=== PATIENT | female | born 1975 | race Caucasian/White ===

== ENCOUNTER 2019-05-11 13:22 | Inpatient (IN) | payer SELFPAY ==
[2019-05-11] VITALS (18 sets, daily range): BP systolic 99–118; BP diastolic 55–74; PULSE 59–93; RESP 14–18; TEMP 36.1–36.9; O2SAT 96–100; BMI 35.2
[2019-05-11] MEDS: Terbutaline 1 MG/ML Vial 0.25 MG SC (13:04)
[2019-05-11 13:37] LABS: Absolute Lymphocyte Count 1.81 X10^3/uL (0.83-4.51); Absolute Neutrophil Count 6.5 X10^3/uL (2.0-7.7); Basophil# 0.07 X10^3/uL; Basophil% 0.7 % (0-1); Eosinophil# 0.06 X10^3/uL; Eosinophils% 0.6 % (0-5); Hemoglobin 11.5 g/dL (12.0-15.0); Lymphocyte # 1.81 X10^3/ul (4.0); Lymphocyte % 19.2 % (19-41); Mean Corp Hgb Conc 32.9 g/dL (32-36); Mean Corpuscular Hgb 29.6 pg (27.0-32.0); Mean Corpuscular Volume 90.2 fL (81-99); Monocyte# 0.65 X10^3/uL; Monocyte% 6.9 % (0-10); NRBC Flagged by Analyzer 0 % (0-5); Neutrophil # 6.48 X10^3/uL (2.7-7.7); Neutrophil % 68.6 % (47-70); Platelet Count 153 K/mm3 (150-450); RBC Distribution Width CV 13.2 % (11.6-14.6); RBC Distribution Width SD 43.5 fl (35.1-43.9); Red Blood Count 3.88 M/mm3 (4.2-5.4); White Blood Count 9.5 K/mm3 (4.4-11.0)
[2019-05-11] MEDS: Methylergonovine 0.2 MG/ML Ampul IM (13:48)
[2019-05-11] MEDS: Oxytocin 30 units/NS 500 ml 30 UNITS/500 ML IV.SOLN 167 UNITS IV (13:48)
[2019-05-11] MEDS: Cefazolin 2 GM in 0.9% Normal Saline 100 ML IV (14:00)
[2019-05-11] MEDS: Ondansetron 4 MG/2 ML Vial IV ×2 (14:10→18:15)
--- NOTE | 2019-05-11 14:45 | NURSING ---
Balloon tamponade filled with 300 cc normal saline in OR
[2019-05-11 14:54] LABS: Absolute Lymphocyte Count 2.01 X10^3/uL (0.83-4.51); Absolute Neutrophil Count 6.4 X10^3/uL (2.0-7.7); Basophil# 0.06 X10^3/uL; Basophil% 0.6 % (0-1); Eosinophil# 0.05 X10^3/uL; Eosinophils% 0.5 % (0-5); Hematocrit 28.4 % (37-47); Hemoglobin 9.3 g/dL (12.0-15.0); Lymphocyte # 2.01 X10^3/ul (4.0); Lymphocyte % 21.3 % (19-41); Mean Corp Hgb Conc 32.7 g/dL (32-36); Mean Corpuscular Hgb 29.9 pg (27.0-32.0); Mean Corpuscular Volume 91.3 fL (81-99); Mean Platelet Vol. 11.3 fl (6.2-12.0); Monocyte# 0.54 X10^3/uL; Monocyte% 5.7 % (0-10); NRBC Flagged by Analyzer 0 % (0-5); Neutrophil # 6.42 X10^3/uL (2.7-7.7); Neutrophil % 68.2 % (47-70); Platelet Count 132 K/mm3 (150-450); RBC Distribution Width CV 13.3 % (11.6-14.6); RBC Distribution Width SD 44.4 fl (35.1-43.9); Red Blood Count 3.11 M/mm3 (4.2-5.4); White Blood Count 9.4 K/mm3 (4.4-11.0)
--- NOTE | 2019-05-11 14:54 | CASEMGMT ---
Social Work Labor and Delivery Unit Responded to OB-ERT this date. This advertising copywriter informed by nursing of placenta previa present and taken to the room. Sat with patient's Arian (age 39) while medical team prepared patient for surgery. Arian reports there are 10 living children at home ranging in age from 19 to 3 year old. 7 girls and 3 boys. Arian works as a counter tender. Patient has worked with several midwives in past pregnancies and did deliver at least one child at [facility]. talkative during time with social director and did express concern for patient and baby, that wants both to be safe and healthy. Supportive listening provided. Remained with Arian until Arian able to be in surgical area for delivery. No other needs requested or identified at this time. -KOBI Rene, SOCIAL WORK THERAPIST
[2019-05-11 15:00] LABS: Partial Thromboplast Time 26.8 Seconds (24.1-36.2)
[2019-05-11] MEDS: Lactated Ringers 1,000 ML 150 ML IV ×2 (15:00→22:25)
[2019-05-11] MEDS: Lactated Ringers 1,000 ML 100 ML IV (15:00)
[2019-05-11 15:22] LABS: Fibrinogen 322 mg/dl (203-444)
--- NOTE | 2019-05-11 17:40 | HP.PCM_ITS ---
- Problem List (1) Complete placenta previa with hemorrhage, third trimester Status: Acute (2) Grand multipara Status: Acute (3) hemorrhage due to total placenta previa Status: Acute (4) Delivery by section Status: Acute History Date of Admission: 05/11/19 Final RUFUS: 05/10/19 Gestational age: 40 Weeks and 1 Days History of this : This is a 43 year-old, at 40 weeks gestational age presents initially to be evaluted for breech presentation, upon ultrasound she was found to have oligohydramnios at 1 cm and she was examined and found to be 4-5 cm dilated with a complete previa and she began acutely bleeding. she had received care by a display coordinator in the community and hadn't had any formal ultrasounds in the . Allergies No Known Allergies Allergy (Verified 05/11/19 13:03) Smoking Status: Never smoker Alcohol: None Number of Fetus(es): 1 Heart Tracin moderate variability reactive no decelerations category I tracing Sophia: regular History Past Pregnancies: Past Pregnancies 10 previous term vaginal deliveries Labs: Mom's Problem List Problem Status Onset Code Complete placenta previa with hemorrhage, third trimester Acute O44.13 Grand multipara Acute Z64.1 hemorrhage due to total placenta previa Acute O72.1 Delivery by section Acute Mom's Labs & Results 05/11/19 05/11/19 05/11/19 13:15 13:15 13:15 WBC 9.5 RBC 3.88 L Hgb 11.5 L Hct 35.0 L MCV 90.2 MCH 29.6 MCHC 32.9 RDW Std Deviation 43.5 RDW Coeff of Viv 13.2 Plt Count 153 MPV 12.0 Immature Gran % (Auto) 4.000 H Neut % (Auto) 68.6 Lymph % (Auto) 19.2 [place] % (Auto) 6.9 Eos % (Auto) 0.6 Baso % (Auto) 0.7 Absolute Neuts (auto) 6.5 Absolute Lymphs (auto) 1.81 Nucleated RBC % 0 PT INR APTT Fibrinogen Blood Type A POSITIVE Antibody Screen NEGATIVE Crossmatch See Detail 05/11/19 05/11/19 05/11/19 14:25 14:25 14:25 WBC 9.4 RBC 3.11 L Hgb 9.3 L Hct 28.4 L MCV 91.3 MCH 29.9 MCHC 32.7 RDW Std Deviation 44.4 H RDW Coeff of Viv 13.3 Plt Count 132 L MPV 11.3 Immature Gran % (Auto) 3.700 H Neut % (Auto) 68.2 Lymph % (Auto) 21.3 [place] % (Auto) 5.7 Eos % (Auto) 0.5 Baso % (Auto) 0.6 Absolute Neuts (auto) 6.4 Absolute Lymphs (auto) 2.01 Nucleated RBC % 0 PT 13.0 INR 1.0 APTT 26.8 Fibrinogen 322 Blood Type Antibody Screen Crossmatch Course Did the patient receive No care? Labs Blood Type: A RH: POSITIVE HbSAg Not Done Chlamydia Not Done Gonorrhea Not Done HIV/AIDS Not done Group B Strep: Not Done Current Obstetrical History Gestational Diabetes No Incompetent Cervix No Infertility No IUGR No Macrosomia No Hypertension/Pre-eclampsia No Placenta Previa/Abruption Yes PTL/PROM No Uterine anomaly No Oligohydramnios No Polyhydramnios No Multiple gestation No Past Medical History Asthma No Diabetes No Hypertension No Heart disease No Mitral valve prolapse No Neurologic/Seizure disorder/ No Migraines Kidney disease No Liver disease No Varicosities No Clotting disorders/Hx of DVT No Thyroid Dysfunction No Other medical diseases No Psychiatric disorders No Major trauma No Abnormal PAP smear No Sleep apnea No Mammogram in the last 2 years No Social History Marital Status: Alleged father Arian Hx Smoking No Smoking Status Never smoker Expected Delivery Method: Primary Section Review of Systems Constitutional: Denies: Fever, Malaise Eyes: Denies: Blurred vision, Vision Change HEENT: Denies: Head Aches, Visual Changes Cardiovascular: Denies: Chest Pain, Palpitations Respiratory: Denies: Cough, Shortness of Breath, Wheezing Gastrointestinal: Denies: Abdominal Pain, Diarrhea, Nausea, Vomiting Genitourinary: Denies: Dysuria, Hematuria Gynecological: Reports: Vaginal bleeding Musculoskeletal: Denies: Joint Pain, Muscle pain Skin: Denies: Lesions, Rash Neurological: Denies: Blurred vision, Focal weakness, Headaches Psychiatric: Denies: Anxiety, Depression Endocrine: Denies: Heat/ Cold Intolerance Hematologic/ Lymphatic: Denies: Easy Bruising, Easy Bleeding Physical Exam Vitals: Vital Signs Temp Pulse Resp BP Pulse Ox 97.3 F L 63 16 118/64 100 07/31/19 17:15 05/11/19 17:15 05/11/19 17:15 05/11/19 17:15 05/11/19 17:15 General: Alert, Cooperative, No apparent distress HEENT: Atraumatic, Normocephalic. Negative for: Thyromegaly, Lymphadenopathy Cardiovascular: Regular rate Lungs: Normal air movement Abdomen: Soft, Non Tender, Gravid Neurological: Deep Tendon Reflexes 2+/4 and Symmetrical, Neuro grossly intact. Negative for: Clonus NETWORK SECURITY OFFICER: Normal external genitalia. Negative for: Vulvar lesions Estimated gestational size: Appropriate for gestational size Presentation: Cephalic Cervix Dilation (cm): 4.5 - bleeding 400 cc Assessment/Plan All Active Problems Complete placenta previa with hemorrhage, third trimester (Acute) Grand multipara (Acute) hemorrhage due to total placenta previa (Acute) Delivery by section (Acute) This is a 43 year-old, , at 40 weeks gestational age presents with acute hemorrhage secondary to placenta previa. immediate delivery due to hemorrhage and previa
[2019-05-11] MEDS: Ketorolac 30 MG/ML Syringe IV (18:15)
--- NOTE | 2019-05-11 18:49 | PCM.OPRPT ---
Problem List (1) Complete placenta previa with hemorrhage, third trimester Status: Acute (2) Grand multipara Status: Acute (3) hemorrhage due to total placenta previa Status: Acute (4) Delivery by section Status: Acute Delivery Classification: RORY Final RUFUS: 05/10/19 Gestational age: 40 Weeks and 1 Days Indications for : Placenta Previa Description of Procedure: Auto Painter Helper stefanie Ackerman implantable devices- bakri balloon. meds: adriano, methergine, tranexamic acid Patient had been receiving care from a binder layer in the area and wanted to have second opinion regarding position. Patient was evaluated and found to be vertex upon initial evaluation. oligohydramnios was seen and an CELIA was only 1 cm. It was difficult to scan the patient due to the lack of amniotic fluid and the low position of the head. Patient cervix was examined for dilation to evaluate for induction of labor and upon vaginal exam she was found to be 4 to 5 cm dilated with an abnormal exam to palpation and acute bleeding suspicious of placenta previa. With additional manipulation and movement of the probe based on ultrasound appeared to be a placenta previa present and therefore the decision for immediate made. heart rate was reassuring with no decelerations in the 130s moderate variability reactive. Patient was taken back to the operating room and set up for spinal anesthesia bleeding was approximately 400 cc prior to delivery. Patient was prepped and draped in normal sterile fashion in the dorsal supine position and a Pfannenstiel skin incision was made with scalpel carried through the underlying layer fascia with scalpel fascia was nicked in midline incision and stretched laterally. Peritoneum entered digitally and incision stretched laterally and lower part of the uterus was noted to be greatly vascular and bulbous in appearance therefore a higher uterine incision was made but still low transverse which successfully avoided the placenta. Infant's head was delivered atraumatically followed by the rest the cord was clamped and cut the infant was seen after waiting nurse. Uterus was exteriorized and the placenta was spontaneously and then manually removed. Large sinuses were noted in the lower uterine segment going down into the cervix where the placenta had been attached and several stitches were oversewn to the endometrium lining of the uterus to obtain hemostasis. adriano applied and twice a balloon was attempted but they ruptured upon attempt to close the uterine incision. uterine incision was closed in a double layer and then a bakri balloon introduced intrauterine. lysteda and methergine were given as well as pitocin. bleeding was controlled and good uterine tone noted. Uterus was returned to maternal abdomen and gutters were cleared of all clots and debris. Using 3-0 Monocryl for the peritoneum and then 0 PDS for the fascia these layers were closed and then the subcutaneous tissue and skin were closed with 3-0 Monocryl. Patient was taken to recovery in stable condition. Amniotic Fluid Description: Bloody Placenta Disposition: Sent to Pathology Drain: Locke to straight drain Cord Entanglement: None Cord Vessel Description: 3 Vessels Esitmated Blood Loss (ml): 2000 Infant Gender: Male Delayed cord clamping: No Pre-op Antibiotic Given: - - 500mg Pt instructed on risks of surgery: Bleeding Complications: - - Complete placenta previa with hemorrhage - Admit VTE Documentation VTE Present on Admission: No VTE Mechan Device Prophylaxis: SCD's
[2019-05-11 19:02] LABS: Hematocrit 32.9 % (37-47); Hemoglobin 11.1 g/dL (12.0-15.0); Mean Corp Hgb Conc 33.7 g/dL (32-36); Mean Corpuscular Hgb 30.7 pg (27.0-32.0); Mean Corpuscular Volume 91.1 fL (81-99); Mean Platelet Vol. 11.6 fl (6.2-12.0); Platelet Count 149 K/mm3 (150-450); RBC Distribution Width CV 13.2 % (11.6-14.6); RBC Distribution Width SD 43.5 fl (35.1-43.9); Red Blood Count 3.61 M/mm3 (4.2-5.4); White Blood Count 19.4 K/mm3 (4.4-11.0)
[2019-05-11 19:09] LABS: Fibrinogen 324 mg/dl (203-444)
--- NOTE | 2019-05-11 19:31 | PLAC_PTH ---
PATIENT: SKYLAR TORRES LOC: [facility] U#:[id number] AGE/SX: 43/F ROOM: WP004 RE05/11/[address]: Dr. Lenora Morales MD : 1975 BED: 1 DIS: 05/13/2019 SPEC #: [id number] RECD: 05/12/19 09:31 STATUS: CAL REAleksey #: [id number] NATHAN: 05/11/19 19:[address]: Lenora Morales DEPT: SURGICAL PATHOLOGY RECD BY: Johnathan Harkins ENTERED: 05/12/19 09:32 SP TYPE: PLACENTA OTHR DR: No Primary Care Phys Tissues: Placenta, NOS Procedures: Surgery Specimen Level V HEADER OPERATION: Primary section PRE-OP DIAGNOSIS: Previa TISSUE SUBMITTED: Placenta MICROSCOPIC DIAGNOSIS Garrido placenta (580 gm): Umbilical cord - trivascular with focal acute funisitis. Placental membranes - no pathologic change. Placental disc - organizing intraparenchymal hemorrhage and mild Britt-Cooper change. AM:tabitha 05/16/19 MICROSCOPIC DESCRIPTION Slides are reviewed. GROSS DESCRIPTION SPECIMEN: PLACENTA / CLINICAL INFORMATION: A. Weight: 4.288 kg B. Gestational Age: 40 weeks C. Sex: Male PLACENTAL WEIGHT (POST FIXATION): 580 gm PLACENTAL DIMENSIONS: 17 x 16 x 3 cm PLACENTAL SHAPE: Usual ovoid PLACENTAL WEIGHT FOR GESTATIONAL AGE: Within 10-99th percentile MEMBRANES - Present A. Insertion: Marginal B. Site of rupture from edge: At edge of placental disc C. Color of membrane: Gonzalez-esqueda D. Abnormalities: None UMBILICAL CORD - Present A. Color: Gonzalez-esqueda B. Insertion: Slightly eccentric C. Length: 48 cm D. Diameter: 1.2 cm E. Number of vessels: Three F. Abnormalities: None PLACENTAL DISC - Present A. Color of surface: Gonzalez-esqueda B. surface abnormalities: None C. Maternal cotyledons: Intact with minimal tears D. Attached retro placental clot: No clot E. Cut surface: Dark red and spongy F. Lesions: Serial sections reveal a firm, gonzalez-white lesion measuring 2 x 1.5 cm present at the periphery of the placental disc. G. Separate clot: Absent SECTIONS SUBMITTED: 1. Umbilical cord ( end inked black) 2. Membrane roll 3. Placental disc, and maternal surfaces, lesion 4. Placental disc, and maternal surfaces 5. Placental disc, and maternal surfaces AM:tabitha 05/13/19 TC:2 CPT: 17807
[2019-05-11 20:00] LABS: Rubella IgG < 0.2 IU/mL
--- NOTE | 2019-05-11 21:15 | NURSING ---
Pt. has a balloon tamponade in place. Draining bright red blood. Tubing unkinked and bag hung below the level of the uterus. Catheter secured to pt's right thigh.
[2019-05-11 21:31] LABS: Chlamydia Trachomatis by PCR Negative (Negative); Neisserai gonorrhoeae by PCR Negative (Negative); Probe Check PASS; Sample Adequacy Control PASS; Specimen Processing Control PASS
[2019-05-11] MEDS: Cefazolin 1 GM/50 ML BAG IV (22:25)
--- NOTE | 2019-05-11 23:15 | NURSING ---
2300- This RN emptied 75cc of bright red blood from pt's balloon tamponade drainage bag.
[2019-05-12] VITALS (10 sets, daily range): BP systolic 85–110; BP diastolic 42–62; PULSE 73–86; RESP 14–18; TEMP 36.7–37.3; O2SAT 96–100
[2019-05-12 05:16] LABS: Hematocrit 27.1 % (37-47); Mean Corp Hgb Conc 33.2 g/dL (32-36); Mean Corpuscular Hgb 30.4 pg (27.0-32.0); Mean Corpuscular Volume 91.6 fL (81-99); Mean Platelet Vol. 11.8 fl (6.2-12.0); Platelet Count 113 K/mm3 (150-450); RBC Distribution Width CV 13.2 % (11.6-14.6); RBC Distribution Width SD 44.2 fl (35.1-43.9); Red Blood Count 2.96 M/mm3 (4.2-5.4); White Blood Count 14.7 K/mm3 (4.4-11.0)
[2019-05-12] MEDS: 0.9% Saline Lock 10 ML Syringe IV ×3 (06:07→17:39)
[2019-05-12] MEDS: Cefazolin 1 GM/50 ML BAG IV (06:08)
[2019-05-12] MEDS: Ketorolac 30 MG/ML Syringe IV ×3 (06:08→17:39)
[2019-05-12] MEDS: Lactated Ringers 1,000 ML 100 ML IV (08:00)
[2019-05-12 11:19] LABS: HIV - WCH Non-Reactive (Nonreactive); Hepatitis B Surface Antigen Non-Reactive (Nonreactive); Hepatitis C Antibody Non-Reactive (Nonreactive)
[2019-05-12 13:37] LABS: Rapid Plasmin Reagin (RPR) NONREACTIVE (NONREACTIVE)
--- NOTE | 2019-05-12 16:13 | CPS ---
PATIENT SLEEPING, LEFT IN ROOM NURSING TO START
[2019-05-13 00:31] VITALS: BP 99/60; PULSE 76; RESP 16
[2019-05-13] MEDS: Ketorolac 30 MG/ML Syringe IV ×2 (00:31→06:03)
[2019-05-13] MEDS: 0.9% Saline Lock 10 ML Syringe IV ×2 (00:31→06:04)
--- NOTE | 2019-05-13 04:00 | PCM.PN.OB ---
Patient Problems: Active and Suspected Problems Complete placenta previa with hemorrhage, third trimester (Acute) Grand multipara (Acute) hemorrhage due to total placenta previa (Acute) Delivery by section (Acute) Subjective: late entry- patient seen at 900am remove bakri balloon, minimal bleeding. no CP SOB N V dizziness. doing well - Physical Exam General: Alert, Oriented x3 Oral: Moist Mucosa Lungs: Normal air movement Cardiovascular: Regular rate Abdomen: Soft, Non Tender Vital Signs Temp Pulse Resp BP Pulse Ox 98.1 F 76 16 99/60 96 05/12/19 19:29 05/13/19 00:31 05/13/19 00:31 05/13/19 00:31 05/12/19 19:29 Oxygen Delivery Method Room Air Weight: 205 lb 0.478 oz Body Mass Index (BMI) 35.2 Intake and Output for Last 24 Hours 05/11/19 05/12/19 05/13/19 23:59 23:59 23:59 Intake Total 4012 / 4012 3904 / 3904 Output Total 400 / 400 4650 / 4650 Balance 3612 / 3612 -746 / -746 Laboratory Tests Past 24 Hrs 05/11/19 05/11/19 05/12/19 18:50 18:50 04:40 WBC 14.7 H RBC 2.96 L Hgb 9.0 L Hct 27.1 L MCV 91.6 MCH 30.4 MCHC 33.2 RDW Std Deviation 44.2 H RDW Coeff of Viv 13.2 Plt Count 113 L MPV 11.8 RPR NONREACTIVE Hep Bs Antigen Non-Reactive Hepatitis C Antibody Non-Reactive HIV 1&2 Antibody Non-Reactive Medical Necessity - Tobacco Use Smoking Status: Never smoker Assessment/Plan All Active Problems Complete placenta previa with hemorrhage, third trimester (Acute) Grand multipara (Acute) hemorrhage due to total placenta previa (Acute) Delivery by section (Acute) s/p LTCS PPD # 1 1. routine post care 2. breast feeding- support given 3. rh positive 4. rubella non-immune- needs MMR 5. anemia secondary to acute blood loss from hemorrhage from placenta previa and stat cs- blood counts stable and patient asymptomatic, dc home tomorrow to be able to be with baby that was transferred to [facility].
[2019-05-13 06:08] VITALS: BP 99/58; PULSE 72; RESP 18; TEMP 36.7
[2019-05-13] MEDS: oxyCODONE 5 MG Tablet PO (08:04)
[2019-05-13] MEDS: Senna/Docusate Sodium 1 Tablet PO (08:04)
--- NOTE | 2019-05-13 08:29 | PCM.PN.OB ---
Patient Problems: Active and Suspected Problems Complete placenta previa with hemorrhage, third trimester (Acute) Grand multipara (Acute) hemorrhage due to total placenta previa (Acute) Delivery by section (Acute) Subjective: doing well no complaints pain controlled no CP SOB N V ambulating well tolerating po lochia moderate, baby transported to [facility] - Physical Exam General: Alert, Oriented x3 Abdomen: Soft, Non Tender, - - C/D/I Vital Signs Temp Pulse Resp BP Pulse Ox 98.0 F 72 18 99/58 L 96 05/13/19 06:08 05/13/19 06:08 05/13/19 06:08 05/13/19 06:08 05/12/19 19:29 Oxygen Delivery Method Room Air Weight: 205 lb 0.478 oz Body Mass Index (BMI) 35.2 Intake and Output for Last 24 Hours 05/11/19 05/12/19 05/13/19 23:59 23:59 23:59 Intake Total 4012 / 4012 3904 / 3904 Output Total 400 / 400 4650 / 4650 Balance 3612 / 3612 -746 / -746 Laboratory Tests Past 24 Hrs 05/11/19 05/11/19 18:50 18:50 RPR NONREACTIVE Hep Bs Antigen Non-Reactive Hepatitis C Antibody Non-Reactive HIV 1&2 Antibody Non-Reactive Medical Necessity - Tobacco Use Smoking Status: Never smoker Assessment/Plan All Active Problems Complete placenta previa with hemorrhage, third trimester (Acute) Grand multipara (Acute) hemorrhage due to total placenta previa (Acute) Delivery by section (Acute) s/p LTCS PPD # 2 1. routine post care 2. breast feeding- support given 3. rh positive 4. rubella non-immune- needs MMR 5. anemia secondary to acute blood loss from hemorrhage from placenta previa and stat cs- blood counts stable and patient asymptomatic, dc today. patient to take iron at home to rebuild blood counts
--- NOTE | 2019-05-13 08:30 | DCINST_ITS ---
Discharge Diet: No Restrictions Discharge Activity: May Not Drive - for 2 weeks, May not drive while taking narcotic pain medications., May Shower, May Take a Tub Bath - in 7 days May resume sexual activity in: 4-6 weeks Lifting Restrictions: 20 pounds Additional Activity Instructions:: Nothing in the vagina for 4-6 weeks. You may return to work/school in 6 weeks. Call your doctor if your incision/area has: Continuous Slow Oozing, Sudden Increased Bleeding, Increased Pain/ Swelling, Increased Redness, Foul Smelling Discharge Call your doctor if you observe: Fever of 101 or Higher, Using more than one pad per hour - for 2 hours Suture Line Care: Avoid Pulling/Pushing, Avoid Pinching/Bending Cleanse incision/area with: Keep Dressing Clean & Dry Additional Instructions: If you experience any of the following, contact your healthcare provider. * Bleeding that soaks a pad every hour for 2 hours * Fever 100.4 or higher * Unrelieved incision or abdominal pain * Swelling, redness, discharge or bleeding from your incision or episiotomy site * Your incision begins to separate * Problems urinating (including inability to urinate or burning while urinating). * Visual changes * Severe headache * Flu-like symptoms * Pain or redness in one of both of your breasts * Pain, warmth, tenderness or swelling in your legs, especially the calf area * Frequent nausea and vomiting * Symptoms of depression or anxiety If you experience any of the following, call 911 or go to the nearest Emergency Room. * Chest pain * Problems breathing * Seizure activity * Partial or complete paralysis of a body part, slurred speech, weakness or drooping of the face, or a sudden inability to walk or hold your balance Allergies/Adverse Reactions: Allergies No Known Allergies Allergy (Verified 05/11/19 13:03) Medications to take at Discharge Naproxen [Naprosyn] 250 - 500 mg PO Q8H PRN PRN #30 tab 05/13/19 Oxycodone HCl/Acetaminophen [Percocet 5-325] 1 - 2 tab PO Q4H PRN PRN 7 Days #15 tab 05/13/19 The following prescriptions were given: Naproxen [Naprosyn] 250 - 500 mg PO Q8H PRN PRN #30 tab PRN Reason: MILD PAIN Transmission Status: Pending to [facility] Oxycodone HCl/Acetaminophen [Percocet 5-325] 1 - 2 tab PO Q4H PRN PRN 7 Days #15 tab PRN Reason: Pain Prescription Printed Follow-Up: Call to make an appointment with your doctor for an incision check in 1-2 weeks. You will also need a 6 week post- follow up appointment. Test results from this visit will be discussed in further detail at your follow- up appointment, if applicable. Please Follow Up With: Lenora Morales MD - Call to make an appointment for an incision check in 1-2 [phone] When: You will need a post- check in 6 weeks. Primary Care Physician: Care Physician,No Primary [Primary Care Provider] -
[2019-05-13 09:18] VITALS: BP 101/62; PULSE 83; RESP 16; TEMP 36.7
--- NOTE | 2019-05-13 18:47 | NURSING ---
LE: MMR VIS given and explained to pt 05/13/19 @ 7264. Pt declines vaccine.
[2019-05-17 13:28] LABS: Pathology Specimen OB SEE PATHOLOGY REPORT
== END 2019-05-13 11:03 | disposition home or self-care (01) | DRG 768 ==
LOC: WPOUT 13:22
PROVIDERS: Admitting Provider Obstetrics & Gynecology; Visit Provider Obstetrics & Gynecology
DX: O41.03X0 Oligohydramnios, third trimester, not applicable or unspecified (principal); Z37.0 Single live birth; O44.13 Complete placenta previa with hemorrhage, third trimester; O72.1 Other immediate postpartum hemorrhage; D62 Acute posthemorrhagic anemia; Z3A.40 40 weeks gestation of pregnancy; O99.02 Anemia complicating childbirth
CPT/HCPCS: 36415; 59050; 85025; 85027; 85384; 85610; 85730; 86592; 86703; 86762; 86803; 86850; 86900; 86920; 87340; 87491; 87591; 88307; 99218; J7120; A4216; G0378; J2405